=== PATIENT | male | born 1930 | race Caucasian/White ===

== ENCOUNTER → 2018-03-26 | Outpatient (CLI) | payer MEDICARE, OTHER ==
[~2018-03-26] MED LIST: ADULT LOW DOSE81 MG; AMOXICILLIN875 MG PO; ASPIRIN EC325 M1 PO; AUGMENTIN 875875 MG PO; BACTRIM DS TAB1 EACH PO; CIPRO500 MG PO; CRESTOR; CRESTOR10 MG PO; FISH OIL 1,001000 M2 PO; FISHOIL; LEVSIN-SL0.125 MG PO; LOPRESSOR; LOPRESSOR50 PO; LORTAB 5 MG/5001 TA1 PO; MULTIVITAMINS PO; NORCO 5-325 TA1 EACH PO; PRILOSEC2.5 MG; PRILOSEC20 MG PO; VITAMIN D1000 UNI1 PO; [UNRECOGNIZED DRUG - OTHER] PO
[2018-03-26 09:54] LABS: CALCIUM 8.3 mg/dL (8.5-10.1); CREATININE 1.1 mg/dL (0.6-1.3); POTASSIUM 3.6 mmol/L (3.5-5.1)
== END ==
LOC: M.LAB 08:51
PROVIDERS: Nurse Practitioner
DX: R60.0 Localized edema (principal); I25.10 Atherosclerotic heart disease of native coronary artery without angina pectoris; I10 Essential (primary) hypertension

== ENCOUNTER → 2018-10-15 | Outpatient (CLI) | payer MEDICARE, OTHER ==
[2018-10-15 10:36] LABS: CALCIUM 8.9 mg/dL (8.5-10.1)
== END ==
LOC: M.LAB 09:43
PROVIDERS: Nurse Practitioner
DX: R60.0 Localized edema (principal)

== ENCOUNTER → 2020-06-02 | Outpatient (CLI) | payer MEDICARE, OTHER | LOC: M.RAD 14:41 | PROVIDERS: ATTEND Internal Medicine Critical Care Medicine | DX: R06.02 Shortness of breath (principal); R60.0 Localized edema; Z77.090 Contact with and (suspected) exposure to asbestos ==

== ENCOUNTER → 2020-06-15 | Outpatient (CLI) | payer MEDICARE, OTHER ==
--- NOTE | 2020-06-15 10:37 | 2DMMODE ---
[place] [address] 2 D/M-MODE ECHOCARDIOGRAM Name: SHAHEED PAGE BETTY Room: [facility]#: [id number] Admission: 06/15/20 Attend Phys: Jono Leon MD Discharge: Date of : 34 Date of Service: 06/15/20 [facility] Report #: [id number] THIS REPORT FOR: cc: Leonardo Garrett MD, Todd MD Blick,Christopher Ortiz MD [facility] ~ APPROVED REPORT Study performed: 06/15/2020 08:59:14 EXAM: Comprehensive 2D, Doppler, and color-flow Echocardiogram Patient Location: Out-Patient BSA: 1.93 HR: 68 bpm BP: 148/72 mmHg Other Information Study Quality: Good Indications Aortic Valve Disease 2D Dimensions IVSd: 15.23 (7-11mm) LVOT Diam: 20.23 (18-24mm) LVDd: 48.56 mm PWd: 11.74 (7-11mm) Ascending Ao: 37.18 (22-36mm) LVDs: 29.75 (25-40mm) Aortic Root: 26.89 mm Volumes Left Atrial Volume (Systole) LA ESV Index: 23.80 mL/m2 Aortic Valve AoV Peak Esteban.: 1.37 m/s AO Peak Gr.: 7.50 mmHg LVOT Max P.15 mmHg AO Mean Gr.: 4.13 mmHg LVOT Mean P.09 mmHg LVOT Max V: 0.73 m/s AO V2 VTI: 26.39 cm LVOT Mean V: 0.48 m/s MANAS (VTI): 1.78 cm2 LVOT V1 VTI: 14.65 cm AI [place]: 2.81 m/s2 AI PHT: 466.86 [place] [address] 2 D/M-MODE ECHOCARDIOGRAM Name: SHAHEED PAGE BETTY Room: [facility]#: [id number] Admission: 06/15/20 Attend Phys: Jono Leon MD Discharge: Date of : 34 Date of Service: 06/15/20 [facility] Report #: [id number] Mitral Valve E/A Ratio: 0.45 MV Decel. Time: 350.16 ms MV E Max Esteban.: 0.33 m/s MV PHT: 101.55 ms MVA (PHT): 2.17 cm2 TDI E/Lateral E': 6.60 E/Medial E': 4.71 Medial E' Esteban.: 0.07 m/s Lateral E' Esteban.: 0.05 m/s Pulmonary Valve PV Peak Esteban.: 0.76 m/s PV Peak Gr.: 2.28 mmHg Tricuspid Valve RAP Estimate: 5.00 mmHg TR Peak Gr.: 30.25 mmHg RVSP: 35.25 mmHg PA Pressure: 35.25 mmHg Left Ventricle The left ventricle is normal size. There is normal LV segmental wall motion. Mild concentric left ventricular hypertrophy. Left ventricular systolic function is normal. The left ventricular ejection fraction is within the normal range. LVEF is 55-60%. Grade I - abnormal relaxation pattern. Right Ventricle The right ventricle is normal size. The right ventricular systolic function is normal. Atria The left atrium size is normal. The atrial septum is aneurysmal. The right atrium size is normal. Aortic Valve The Aortic valve is mildly sclerotic. Mild aortic regurgitation. There is no aortic valvular stenosis. Mitral Valve The mitral valve is normal in structure. Mild mitral regurgitation. No evidence of mitral valve stenosis. Tricuspid Valve The tricuspid valve is normal in structure. Trace [place] [address] 2 D/M-MODE ECHOCARDIOGRAM Name: SHAHEED PAGE BETTY Room: [facility]#: [id number] Admission: 06/15/20 Attend Phys: Jono Leon MD Discharge: Date of : 34 Date of Service: 06/15/20 [facility] Report #: [id number] Pulmonic Valve The pulmonary valve is normal in structure. Mild pulmonic regurgitation. Great Vessels The aortic root is normal in size. IVC is normal in size and collapses >50% with inspiration. Pericardium There is no pericardial effusion. <Conclusion> Mild concentric left ventricular hypertrophy. LVEF is 55-60%. The Aortic valve is mildly sclerotic. Mild aortic regurgitation. Mild mitral regurgitation. <ELECTRONICALLY SIGNED> By: Christopher Fraga MD, FACC 06/15/20 1037 1037 1037 Christopher Fraga MD, FACC /INF
== END ==
LOC: M.CRD 09:00
PROVIDERS: ATTEND Internal Medicine Critical Care Medicine
DX: I08.8 Other rheumatic multiple valve diseases (principal); M71.22 Synovial cyst of popliteal space [Baker], left knee; M71.21 Synovial cyst of popliteal space [Baker], right knee

== ENCOUNTER → 2020-06-17 | Outpatient (CLI) | payer MEDICARE, OTHER ==
--- NOTE | 2020-06-26 20:18 | SLEEP ---
[address] [address] SLEEP STUDY REPORT Name: SHAHEED PAGE BETTY [id number] Admission: 06/17/20 Attend Phys: Omi Mooney MD Discharge: Date of : 34 Report #: [id number] THIS REPORT FOR: //name// CC: Omi Garrett This study has been reviewed in its entirety by a board certified sleep specialist INDICATION FOR SLEEP STUDY: Hypersomnia.. INTERPRETATION Total duration of the study is 480 minutes out of which he was asleep for 303 minutes with an overall sleep efficiency decreased to 63.2%. Sleep onset occurred 7 minutes after lying down in bed and REM onset was 108 minutes after sleep onset. N1 sleep duration was 11%, N2 duration was 51%, N3 duration was 15% and REM duration was 23%. This is a split night sleep study, the patient initially was observed without positive airway pressure therapy for 147 minutes out of which he was asleep for 68 minutes. This included 12 minutes of REM sleep. During this time duration, the patient had multiple sleep related respiratory events. These included 3 central apneas, one mixed apnea in addition to 55 hypopneas and 1 respiratory effort related arousal. The patient's overall apnea-hypopnea index was markedly elevated to 52.1. The respiratory disturbance index was 52.9. Body position data indicates the patient was observed asleep in the supine position during the diagnostic portion for only 7.5 minutes and therefore variation with position and apnea-hypopnea index could not be fully evaluated. The patient's mean heart rate at this point was 62. There were occasional premature ventricular contractions recorded. Periodic limb movement index was markedly elevated at 148. Most limb movements, however, were not associated with arousals. Periodic limb movement index with arousals was 11.5. There was a mild sleep fragmentation observed as well as. Other index was elevated to 19.4. Also, there were multiple desaturations. The patient overall spent 13 minutes below an O2 saturation of 88%. The patient was subsequently placed on CPAP therapy and was observed on CPAP therapy for 333 minutes. During this time duration, the patient was asleep for 235 minutes, which in turn included 59 minutes of REM sleep. The patient's mean heart rate was now 53. Periodic limb movement index was 95. Periodic limb movement index with arousals is now 11. Arousal index remained elevated to 23.2. Review of the CPAP titration indicates the patient was titrated beginning with a CPAP pressure of 7 cm of water, gradually increasing it to 10 cm of water. With the administration of a CPAP of 10 cm of water, marked improvement in place the patient's sleep disordered respirations was observed with an apnea-hypopnea index improving to 1.0 and respiratory disturbance index improving [place] 7[place] [address] SLEEP STUDY REPORT Name: SHAHEED PAGE BETTY [id number] Admission: 06/17/20 Attend Phys: Omi Mooney MD Discharge: Date of : 34 Report #: [id number] patient's O2 saturation was also maintained at or above 91% with this therapy in place. REM sleep is observed on the final CPAP pressure. However, REM supine sleep was not observed. IMPRESSION: 1. Severe obstructive sleep apnea with an apnea-hypopnea index of 52.1. There likely is a smaller component of central sleep apnea as well. The patient has significant nocturnal hypoxemia during the diagnostic portion of the sleep study and spent 13 minutes below an O2 saturation of 88%. The patient was observed mostly lying on his sides during the diagnostic portion of the sleep study. With the administration of a CPAP of 10 cm of water, there is marked improvement in the patient's sleep apnea noted. O2 saturation is also adequately maintained. REM sleep is observed on the final CPAP pressure. However, evaluation in the supine position is limited. Periodic limb movement disorder is observed as mentioned above most limb movements, however, are not associated with arousals. RECOMMENDATIONS: 1. Recommend a CPAP of 10 cm of water with heated humidity and mask per patient preference. During this sleep study an Fand P Simplus mask, size large with a C-Flex of 3 was used. 2. The patient already is sleeping mostly on his sides. Suggest continuing to avoid sleeping supine. Recommend avoiding driving or other activities requiring vigilance if drowsy. This entire sleep study was reviewed by board certified sleep physician. <ELECTRONICALLY SIGNED> By: Jono Leon MD 06/26/202017 1638 1701Atanvir Leon MD /nt
== END ==
LOC: M.SLEEPLAB 19:48
PROVIDERS: ATTEND Psychiatry & Neurology Neuromuscular Medicine
DX: G47.33 Obstructive sleep apnea (adult) (pediatric) (principal); G47.10 Hypersomnia, unspecified

== ENCOUNTER 2020-07-15 19:19 | Inpatient (IN) | payer MEDICARE, OTHER ==
[~2020-07-15] VITALS: Ht 177.8 cm; Wt 81.6 kg
[~2020-07-15 19:19] MED LIST changes: +PRILOSEC OTC20 MG PO; -PRILOSEC20 MG PO; -VITAMIN D1000 UNI1 PO; +VITAMIN D325 MC1 PO
[2020-07-15 19:33] VITALS: BP 157/76
[2020-07-15 19:53] LABS: ABSOLUTE BASOPHILS 0.1 thou/uL (0.0-0.2); ABSOLUTE EOSINOPHILS 0.3 thou/uL (0.0-0.7); ABSOLUTE NEUTROPHILS 7.7 thou/uL (1.6-8.1); BASOPHILS 0.7 %; EOSINOPHILS 2.8 %; HEMATOCRIT 40.6 % (42.0-52.0); HEMOGLOBIN 13.5 gm/dL (14.0-18.0); LYMPHOCYTES 9.8 %; MCH 26.6 pg (26.0-34.0); MCHC 33.2 g/dL (28.0-37.0); MCV 80.1 fL (80.0-100.0); MPV 8.5 fl. (7.2-11.1); NUCLEATED RBCS 0 /100WBC; PLATELET COUNT* 235 thou/uL (150-400); POLYS 76.7 %; RBC 5.07 mil/uL (4.50-6.00); RDW-CV 15.9 % (10.5-14.5)
[2020-07-15 20:01] LABS: CALCIUM 7.4 mg/dL (8.5-10.1); CREATININE 1.4 mg/dL (0.6-1.3); POTASSIUM 3.6 mmol/L (3.5-5.1)
[2020-07-15 20:03] LABS: INR 1.1
[2020-07-15 20:06] LABS: ALBUMIN 3.4 g/dL (3.4-5.0); TOTAL BILIRUBIN 0.3 mg/dL (<0.1-1.0); TOTAL PROTEIN 6.6 g/dL (6.4-8.2)
[2020-07-15 20:46] LABS: URINE BILIRUBIN NEGATIVE (Negative); URINE BLOOD NEGATIVE (Negative); URINE CLARITY CLEAR; URINE COLOR YELLOW; URINE GLUCOSE-RANDOM NEGATIVE (Negative); URINE KETONES NEGATIVE (Negative); URINE LEUKOCYTES-REFLEX NEGATIVE (Negative); URINE NITRITE-REFLEX NEGATIVE (Negative); URINE PROTEIN NEGATIVE (Negative); URINE SPECIFIC GRAVITY <= 1.005 (1.005-1.030); URINE UROBILINOGEN 0.2 E.U./dl (0.2-1.0)
[2020-07-15 21:22] VITALS: BP 133/65
[2020-07-15 22:00] VITALS: BP 156/68
[2020-07-16] VITALS (7 sets, daily range): BP systolic 143–167; BP diastolic 68–80
[2020-07-16] MEDS ORDERED: TOPROL XL50 MG PO (06:27)
[2020-07-16] MEDS ORDERED: LISINOPRIL2.5 MG PO (06:29)
[2020-07-16] MEDS ORDERED: KLOR-CON 10 ER10 MEQ PO (06:30)
[2020-07-16] MEDS ORDERED: FUROSEMIDE 40 M40 MG PO (06:31)
[2020-07-16] MEDS ORDERED: SINGULAIR 10 MG10 MG PO (06:34)
[2020-07-16] MEDS ORDERED: RED YEAST RICE600 MG PO (06:35)
[2020-07-16] MEDS ORDERED: PRESERVISION T1 EACH PO (06:35)
[2020-07-16] MEDS ORDERED: 24HOUR ALLERGY10 MG PO (06:37)
[2020-07-16] MEDS ORDERED: CO Q-10100 MG PO (06:38)
[2020-07-16] MEDS ORDERED: PROAIR HFA8.5 GM INH (06:39)
[2020-07-16] MEDS ORDERED: ADVAIR 250-501 EACH INH (06:39)
--- NOTE | 2020-07-16 13:12 | EKG ---
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1930 Requested By: Lew Webb Order Number: [id number] MD: Bhanu Celestin Measurements Intervals [place] Rate: 71 P: -29 [place]: 159 QRS: -28 QRSD: 96 T: 37 QT: 402 QTc: 437 Interpretive Statements Sinus rhythm Multiple premature complexes, vent & supraven Borderline left axis deviation Anteroseptal infarct, old Minimal ST depression, lateral leads Baseline wander in lead(s) II,III,aVF Compared to ECG 05/16/2014 08:32:04 Myocardial infarct finding now present ST (T wave) deviation now present Sinus bradycardia no longer present Electronically Signed On 07-16-2020 13:12:16 CDT by Bhanu Celestin [email or web address] <ELECTRONICALLY SIGNED> By: Holly Celestin MD, [facility] 07/16/20 1312 28 28 Holly Celestin MD, [facility] /EPI
[2020-07-17] VITALS (8 sets, daily range): BP systolic 124–168; BP diastolic 62–89
[2020-07-17 06:09] LABS: ALBUMIN 2.9 g/dL (3.4-5.0); CALCIUM 7.7 mg/dL (8.5-10.1)
[2020-07-17 11:58] LABS: CALCIUM 7.5 mg/dL (8.5-10.1); CREATININE 1.1 mg/dL (0.6-1.3); MAGNESIUM 1.9 mg/dL (1.8-2.4); POTASSIUM 3.9 mmol/L (3.5-5.1)
[2020-07-18] VITALS: BP 119/57
[2020-07-18 04:00] VITALS: BP 120/56
[2020-07-18 08:00] VITALS: BP 160/74
[2020-07-18 15:28] VITALS: BP 164/72
[2020-07-18 16:00] VITALS: BP 125/74
--- NOTE | 2020-07-18 17:04 | CARDNUC ---
[place] [address] CARDIAC NUCLEAR IMAGING REPORT Name: SHAHEED PAGE BETTY Room: [address] IN [facility]#: [id number] Admission: 07/15/20 Attend Phys: Chandana Dwyer, Discharge: Date of : 34 Date of Service: 07/18/20 1704 Report #: [id number] THIS REPORT FOR: cc: Leonardo Garrett MD, Todd MD Liston,Guillaume Hernandez MD [facility] ~ APPROVED REPORT Imaging Protocol: Rest Tc-99m/Stress Tc-99m 1 day Study performed: 07/16/2020 13:10:00 Indication: V-TACH, ABN HEART MONITOR, FAINT FEELING. Patient Location: In-Patient Room #: 210 Stress Tech: Madison Blake Stress Nurse: Flor Pierce RN NM Tech:MIRNA Plascencia Ht: 5 ft 10 in Wt: 185 lbs BSA: 2.02 m2 BMI: 26.54 Medical History Medical History: ROSENBERG, V-TACH, ABN HEART MONITOR, FAINT FEELING, HTN, HLD, KNEE INJURY. Medications: AMIODARONE, ASA 325 MG, FISH OIL, LASIX, METOPROLOL, K-DUR, LISINOPRIL, ATORVASTATIN. Allergies: No known drug allergies Cardiac Risk Factors: Age, HTN, Hyperlipidemia, SOB, V-TACH, ABN HEART MONITOR. Previous Cardiac Procedures: NONE Pretest Chest Pain Characteristics: No chest pain Exercise History: Indeterminate Physical Disabilities: UNSTABLE GAIT, RIGHT KNEE INJURY. Meds Held (24 hrs): AMIODARONE, METOPROLOL. Resting Data Rest SPECT myocardial perfusion imaging was performed in supine position 30 minutes following the intravenous injection of 10.4 mCi of Tc-99m Sestamibi. Time of rest injection: 0850 Date: 07/18/2020 The images were gated to evaluate regional wall motion and calculate left ventricular ejection fraction. Administration Route: IV Administration Site: [place] [address] CARDIAC NUCLEAR IMAGING REPORT Name: SHAHEED PAGE BETTY Room: [address]#: [id number] Admission: 07/15/20 Attend Phys: Chandana Dwyer, Discharge: Date of : 32 Date of Service: 07/18/20 1704 Report #: [id number] Pharmacologic Stress Pharmacologic stress test was performed by injecting Regadenoson 0.4 mg IV push over 10-15 seconds immediately followed by the intravenous injection of 30.1 mCi of Tc-99m Sestamibi. Time of stress injection: 1100 Date: 07/18/2020 Administration Route: IV Administration Site: Right Arm Gated Stress SPECT was performed 40 minutes after stress injection. The images were gated to evaluate regional wall motion and calculate left ventricular ejection fraction. Stress only was performed in the Supine position. Stress Test Details Stress Test: Pharmacologic stress testing performed using 0.4 mg of regadenoson per 5 mL given IV over 10 seconds. Reason for pharmacologic stress test: UNSTABLE GAIT, RIGHT KNEE INJURY.. HR Max Heart Rate (APMHR): 132 bpm Resting HR: 65 bpm Target HR (85% APMHR): 112 bpm Max HR Achieved: 93 bpm % of APMHR: 70 Recovery HR: 81 bpm BP Resting BP: 148/85 mmHg Max BP: 186/85 mmHg Recovery BP: 186/83 mmHg ECG Resting ECG: Sinus Rhythm Stress ECG: Sinus Rhythm ST Change: None Arrhythmia: None Recovery ECG: Sinus Rhythm Recovery ST Change: None Recovery Arrhythmia: None Clinical Reason for Termination: Completed protocol Stress Symptoms: LIGHTHEADED, FUZZY FEELING. Exercise duration: 00 min 00 sec Exercise capacity: 1.00 METs The patient tolerated Lexiscan stress without [place] [address] CARDIAC NUCLEAR IMAGING REPORT Name: SHAHEED PAGE BETTY Room: [address]#: [id number] Admission: 07/15/20 Attend Phys: Chandana Dwyer, Discharge: Date of : 32 Date of Service: 07/18/20 1704 Report #: [id number] Nurse Comments AN 89 YEAR OLD MALE INPATIENT PRESENTED FOR A SITTING LEXISCAN R/T ABN HEART MONITOR, V-TACH, FAINT FEELING. TEST WELL TOLERATED. RECOVERY UNREMARKABLE. PATIENT WAS ESCORTED BY STAFF VIA WHEELCHAIR TO NUCLEAR MEDICINE FOR IMAGING. PATIENT WAS STABLE AND STATED HE FELT GOOD AT THAT TIME. Stress ECG Conclusion The baseline twelve-lead EKG shows sinus rhythm without significant ST segment abnormality. EKGs obtained during and post Lexiscan infusion show sinus rhythm with no significant ST segment changes when compared to baseline. There were no stress-induced arrhythmias. Study Quality Study: Good Artifact: No artifact Study Data At rest, the left ventricular ejection fraction was 72%.. Post stress, the left ventricular ejection was 70%.. TID = 1.00. Perfusion Perfusion images show a moderate sized moderate intensity reversible defect of the apex. No other significant fixed or reversible defects are identified. Wall Motion Global LV systolic function is preserved. There is apical hypokinesis. Nuclear Conclusion ECG Findings: negative for ischemia Clinical Findings: negative for ischemia Nuclear Findings: positive for ischemia Exercise Capacity: not assessed Left Ventricular Function: Preserved Risk Study: moderate Perfusion images show evidence of apical ischemia. Global LV systolic function is preserved. There is an apical wall motion abnormality. This is a moderate risk study. <Conclusion> The baseline twelve-lead EKG shows sinus rhythm [place] [address] CARDIAC NUCLEAR IMAGING REPORT Name: SHAHEED PAGE BETTY Room: [address] IN [facility]#: [id number] Admission: 07/15/20 Attend Phys: Chandana Dwyer, Discharge: Date of : 32 Date of Service: 07/18/20 1704 Report #: [id number] segment abnormality. EKGs obtained during and post Lexiscan infusion show sinus rhythm with no significant ST segment changes when compared to baseline. There were no stress-induced arrhythmias. <ELECTRONICALLY SIGNED> By: Guillaume Bauer MD, [facility] 07/18/20 170 03 03 Guillaume Bauer MD, FACC /INF
--- NOTE | 2020-07-18 17:22 | 2DMMODE ---
[place] [address] 2 D/M-MODE ECHOCARDIOGRAM Name: KAYLEESHAHEED BETTY Room: [address] IN [facility]#: [id number] Admission: 07/15/20 Attend Phys: Chandana Dwyer, Discharge: Date of : 32 Date of Service: 07/18/20 1721 Report #: [id number] THIS REPORT FOR: cc: Leonardo Garrett MD, Todd MD Holkins,Dickson Singh MD [facility] ~ APPROVED REPORT Study performed: 07/18/2020 11:05:12 EXAM: Limited 2D Echocardiogram Patient Location: In-Patient Room #: 210 BSA: 2.02 HR: 76 bpm BP: 148/85 mmHg Other Information Study Quality: Good Indications Tachycardia 2D Dimensions IVSd: 14.32 (7-11mm) LVDd: 47.80 mm PWd: 12.22 (7-11mm) LVDs: 30.46 (25-40mm) Aortic Root: 36.11 mm Left Ventricle The left ventricle is normal size. There is normal LV segmental wall motion. Mild concentric left ventricular hypertrophy. Left ventricular systolic function is normal. The left ventricular ejection fraction is within the normal range. LVEF is 60-65%. Right Ventricle The right ventricle is normal size. The right ventricular systolic function is normal. Atria The left atrium size is normal. The right atrium [place] [address] 2 D/M-MODE ECHOCARDIOGRAM Name: KAYLEESHAHEED BETTY Room: [address] IN M.R.#: [id number] Admission: 07/15/20 Attend Phys: Chandana Dwyer, Discharge: Date of : 34 Date of Service: 07/18/201720 Report #: [id number] Aortic Valve Mild aortic valve sclerosis. Mitral Valve The mitral valve is normal in structure. Tricuspid Valve The tricuspid valve is normal in structure. Pulmonic Valve The pulmonary valve is normal in structure. Great Vessels The aortic root is normal in size. IVC is normal in size and collapses >50% with inspiration. Pericardium There is no pericardial effusion. <Conclusion> The left ventricle is normal size. Mild concentric left ventricular hypertrophy. Left ventricular systolic function is normal. The left ventricular ejection fraction is within the normal range. LVEF is 60-65%. The right ventricle is normal size. The left atrium size is normal. Mild aortic valve sclerosis. The mitral valve is normal in structure. The tricuspid valve is normal in structure. There is no pericardial effusion. There is normal LV segmental wall motion. <ELECTRONICALLY SIGNED> By: Dickson Virk MD, [facility] 07/18/201720 20 20 Dickson Virk MD, FACC /INF
--- NOTE | 2020-07-18 17:40 | EKG ---
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 : 1930 Requested By: Holly Celestin Order Number: [id number] Reading MD: Guillaume Bauer Measurements Intervals [place] Rate: 62 P: 13 [place]: 165 QRS: -24 QRSD: 97 T: 30 QT: 436 QTc: 443 Interpretive Statements Sinus rhythm Borderline left axis deviation Anteroseptal infarct, age indeterminate, possible Compared to ECG 07/15/2020 19:29:12 ST (T wave) deviation no longer present Myocardial infarct finding still present Electronically Signed On 07-18-2020 17:40:16 CDT by Guillaume Bauer [email or web address] <ELECTRONICALLY SIGNED> By: Guillaume Bauer MD, FACC 07/18/20 1740 1204 1204 Guillaume Bauer MD, FACC /EPI
--- NOTE | 2020-07-18 17:44 | EKG ---
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
[2020-07-19] VITALS (12 sets, daily range): BP systolic 132–182; BP diastolic 65–85
[2020-07-19 04:50] LABS: HEMATOCRIT 40.3 % (42.0-52.0); HEMOGLOBIN 13.3 gm/dL (14.0-18.0); MCH 26.2 pg (26.0-34.0); MCHC 32.9 g/dL (28.0-37.0); MCV 79.5 fL (80.0-100.0); MPV 8.9 fl. (7.2-11.1); RBC 5.07 mil/uL (4.50-6.00); RDW-CV 15.2 % (10.5-14.5); WBC 9.1 thou/uL (4.0-11.0)
[2020-07-19 05:05] LABS: CALCIUM 8.1 mg/dL (8.5-10.1); CREATININE 1.4 mg/dL (0.6-1.3); MAGNESIUM 1.9 mg/dL (1.8-2.4)
--- NOTE | 2020-07-19 16:14 | EKG ---
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
[2020-07-20] VITALS: BP 155/77
[2020-07-20 04:51] LABS: HEMATOCRIT 38.7 % (42.0-52.0); HEMOGLOBIN 12.7 gm/dL (14.0-18.0); MCH 26.1 pg (26.0-34.0); MCV 79.2 fL (80.0-100.0); MPV 8.9 fl. (7.2-11.1); RBC 4.88 mil/uL (4.50-6.00); RDW-CV 15.4 % (10.5-14.5); WBC 11.9 thou/uL (4.0-11.0)
[2020-07-20 05:23] LABS: ALBUMIN 3.1 g/dL (3.4-5.0); CALCIUM 7.5 mg/dL (8.5-10.1); CREATININE 1.4 mg/dL (0.6-1.3); MAGNESIUM 1.9 mg/dL (1.8-2.4); TOTAL BILIRUBIN 0.6 mg/dL (<0.1-1.0); TOTAL PROTEIN 6.1 g/dL (6.4-8.2)
[2020-07-20 07:56] VITALS: BP 144/73
[2020-07-20 08:00] VITALS: BP 144/73
[2020-07-20 11:55] VITALS: BP 143/71
--- NOTE | 2020-07-20 13:21 | EKG ---
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: ANIBAL : 1930 Requested By: Guillaume Bauer Order Number: [id number] Rosa M MD: Dickson Virk Measurements Intervals [place] Rate: 60 P: 44 [place]: 194 QRS: -23 QRSD: 133 T: -2 QT: 495 QTc: 495 Interpretive Statements Sinus rhythm Right bundle branch block Left axis deviation Anterior precordial ST-T abnormalities suggesting ischemia Compared to ECG 07/19/2020 08:22:31 Right bundle-branch block now present Anterior ischemic ST-T changes are noted Electronically Signed On 07-20-2020 13:21:07 CDT by Dickson Virk [email or web address] <ELECTRONICALLY SIGNED> By: Dickson Virk MD, [facility] 07/20/20 1321 1351 135 Dickson Virk MD, [facility] /EPI
--- NOTE | 2020-07-20 13:26 | EKG ---
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 : 1930 Requested By: Holly Celestin Order Number: [id number] Rosa M MD: Dickson Virk Measurements Intervals [place] Rate: 59 P: 35 [place]: 165 QRS: -19 QRSD: 111 T: 6 QT: 490 QTc: 486 Interpretive Statements Sinus rhythm Borderline left axis deviation Probable anteroseptal infarct, age indeterminate Minimal ST depression, lateral leads Compared to ECG 07/19/2020 08:22:31 Myocardial infarct finding now present ST (T wave) deviation now present Electronically Signed On 07-20-2020 13:26:10 CDT by Dickson Virk [email or web address] <ELECTRONICALLY SIGNED> By: Dickson Virk MD, [facility] 07/20/20 1326 0503 0503 Dickson Virk MD, [facility] /EPI
--- NOTE | 2020-07-20 14:03 | CARD ---
[address] [address] CARDIAC CATH REPORT Name: SHAHEED PAGE BETTY Room: [address] IN [facility]#: [id number] Admission: 07/15/20 Attend Phys: Chandana Dwyer MD Discharge: Date of : 32 Report #: [id number] THIS REPORT FOR: //name// cc: Leonardo Garrett MD, Todd MD ~ APPROVED REPORT Study performed: 07/19/2020 08:48:39 Patient Details Patient Status: In-Patient Room #: 210 The patient is a 89 year-old male Event Personnel Guillaume Bauer Court Messenger, Val Duval RN Wire Bound Box Machine Helper, Chandana Johnson ScrubKenney Adam RTR Monitor Dr. Dickson Virk tracer bullet charging machine operator Procedures Performed Left Heart Cath w/or w/o Coronaries [id number] [facility] ANISA Place w/wo Plasty Single LAD [id number] Hemostasis w/ Angioseal Indication Unstable angina , Positive stress test Risk Factors Peripheral Vascular Disease, Hypercholesterolemia, Hypertension Admission/Lab Medications/Medications given during procedure Lidocaine Subcut 20 ml, Midazolam (Versed) IV 1 mg, Fentanyl IV 25 mcg, Hydralazine (Apresoline) IV 10 mg, Nitroglycerin SL 0.4 mg, Angiomax IV 13 ml, Angiomax IV 29.24 ml per hr, Nitroglycerin IC 100 mcg, Nitroglycerin IC 100 mcg, Nipride IC 200 mcg, Effient PO 60 mg Procedure Narrative The patient was brought electively to the Cardiac Catheterization Laboratory and was prepped and draped in a sterile manner. The right femoral was infiltrated with 2% Lidocaine subcutaneous anesthesia. A Oniel Sheath 6Fr X 45cm sheath was inserted into the right femoral artery. Coronary angiography was performed using coronary diagnostic catheters. The right coronary system was accessed and visualized with a 6F JL 5.0 Diagnostic catheter. The [place] [address] CARDIAC CATH REPORT Name: SHAHEED PAGE BETTY Room: [address] IN [facility].#: [id number] Admission: 07/15/20 Attend Phys: Chandana Dwyer MD Discharge: Date of : 32 Report #: [id number] accessed and visualized with a AL1 6fr Diagnostic catheter. The left ventricle was accessed and visualized with a Pigtail angled 6Fr Diagnostic catheter. Left ventricular/Aortic Valve gradient assessed via catheter pullback. Pre-demployment femoral angiogram was performed . Closure device was deployed with a 6 Fr Angioseal. The patient tolerated the procedure well and there were no complications associated with the procedure. There was no hematoma. Intraoperative Conscious Sedation Sedation start time: 932 Case end Time: 1113 Fentanyl 25 mcg Versed 1 mg Fluoro Time: 31.6 minutes Dose: DAP 867782 cGycm2 3285.79 mGy Contrast Type and Amount: Omnipaque 425 ml Diagnostic Cath Left Main 0% narrowing LAD 75% proximal with diffuse 90% proximalmid LAD stenosis with prominent intraluminal thrombus; there was 90% stenosis of a segment of the subbranch of the first diagonal branch Circumflex Large dominant vessel with 40% proximal narrowing and 90% diffuse distal narrowing before a prominent second posterolateral left ventricular branch Right Coronary Nondominant vessel which is totally occluded proximally Left Ventriculography Left Ventriculography was not performed. Hemodynamics The aortic pressure is 185/78 mmHg with a mean of 119 mmHg. The left ventricular pressure is 130/7 mmHg with a mean of mmHg. The left ventricular end diastolic pressure is 27 mmHg. There was no gradient across the aortic valve upon pullback. PCI Technique Lesion Anticoagulation was achieved with Angiomax. Percutaneous coronary intervention was performed on the Proximalmid left anterior descending artery segment. The lesion stenosis prior to intervention was 90% with SHANTEL 0-3 flow. A 6FR XB 3.5 100CM Guide Catheter was used to engage the Left ostium. A IG: BMW 190cm Interventional Guidewire was used to cross the lesion. [place] [address] CARDIAC CATH REPORT Name: SHAHEED PAGE BETTY Room: [address] IN M.R.#: [id number] Admission: 07/15/20 Attend Phys: Chandana Dwyer MD Discharge: Date of : 32 Report #: [id number] A Balloon catheter Mini Trek RX 2.0 X 12 was inserted and inflated up to 8.00atm for 8seconds. Additional Inflation: 10.00atm for 10seconds. Additional Inflation: 12.00atm for 10seconds. A Balloon Catheter EA Trek 2.5 X 12 was inserted and inflated up to 10.00 bj for 9 seconds. Additional Inflation: 12.00 bj for 10 seconds. Additional Inflation: 14.00 bj for 8 seconds. STENT DEPLOYMENT A drug-eluting stent Capo RX Stent 2.5X38mm was inserted and inflated up to 12.00atm for 8seconds. Additional Inflation: 14.00atm for 8seconds. POST STENT DEPLOYMENT BALLOON DILATION A Balloon catheter [place] Euphora 2.75x12 was inserted and inflated up to 10.00atm for 8seconds. Additional Inflation: 14.00atm for 7seconds. Additional Inflation: 16.00atm for 8seconds. Final angiography reveals 10 % stenosis with SHANTEL 3 flow. COMMENTS The PCI was technically complex by virtue of severe peripheral vascular disease with marked iliac tortuosity. There was also prominent intraluminal thrombus with compromise of antegrade flow through the LAD system with SHANTEL flow varying from 0-3 throughout the case PCI Technique Lesion 2 Percutaneous Coronary Intervention was performed on the proximal left anterior descending artery segment. The lesion stenosis prior to intervention was 75% with SHANTEL 3 flow. Stent Deployment A drug-eluting stent [place] RX Stent 2.66S56lr was inserted and inflated up to 12.00atm for 8seconds. Additional Inflation: 12.00atm for 6seconds. Final angiography reveals 0 % stenosis with SHANTEL 3 flow. Conclusion 1. Severe coronary artery disease characterized by the following: A 75% proximal with 90% diffuse proximalmid LAD stenosis with prominent intraluminal thrombus and variable flow from SHANTEL 0-III [place] [address] CARDIAC CATH REPORT Name: SHAHEED PAGE BETTY Room: [address] M.R.#: [id number] Admission: 07/15/20 Attend Phys: Chandana Dwyer MD Discharge: Date of : 32 Report #: [id number] B 90% stenosis of a subbranch of the first diagonal branch of the LAD C large dominant circumflex with 40% proximal narrowing and 90% diffuse distal narrowing before a prominent second posterolateral left ventricular branch D 100% occlusion of the nondominant right coronary artery proximally 2. Severe elevation of left ventricular end-diastolic pressure at rest 3. Successful PCI with deployment of drug-eluting stents at the sites of 75% proximal and 90% proximalmid LAD stenosis with 0 and 10% residual narrowings and SHANTEL-3 flow to the distal vessel 4. The procedure was technically complex by virtue of severe peripheral vascular disease with marked iliac tortuosity as well as prominent intraluminal LAD thrombus with variable, SHANTEL 0-III flow in the LAD system throughout the case Recommendations Cardiac Risk Reduction Program Aggressive Medical Therapy Medications Administered Aspirin (any) Ticagrelor Diagnostic Cath Approved by: Guillaume Bauer MD Date/Time: 07/20/2020 13:57:15 <ELECTRONICALLY SIGNED> By: Dickson Virk MD, FACC 07/20/20 1403 140 140Dickson Virk MD, FAC /INF
[2020-07-20 15:50] VITALS: BP 163/71
[2020-07-20 19:45] VITALS: BP 125/59
[2020-07-21] VITALS (12 sets, daily range): BP systolic 119–156; BP diastolic 56–103
[2020-07-21 05:10] LABS: CALCIUM 8.2 mg/dL (8.5-10.1); CREATININE 1.3 mg/dL (0.6-1.3); POTASSIUM 3.8 mmol/L (3.5-5.1)
--- NOTE | 2020-07-21 11:58 | EKG ---
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: : 1930 Requested By: Holly Celestin Order Number: [id number] Reading MD: Dickson Virk Measurements Intervals [place] Rate: 59 P: 28 FL: 175 QRS: -21 QRSD: 95 T: 36 QT: 493 QTc: 489 Interpretive Statements Sinus rhythm Borderline left axis deviation Borderline prolonged QT interval Compared to ECG 07/20/2020 05:03:42 Myocardial infarct finding no longer present ST (T wave) deviation no longer present Electronically Signed On 07-21-2020 11:57:58 CDT by Dickson Virk [email or web address] <ELECTRONICALLY SIGNED> By: Dickson Virk MD, [facility] 07/21/20 1157 9 9 Dickson Virk MD, [facility] /EPI
--- NOTE | 2020-07-21 15:44 | EKG ---
[place] [address] ELECTROCARDIOGRAM REPORT Name: SHAHEED PAGE Room: [address] ADM IN M.R.#: [id number] Admission: 07/15/20 Attend Phys: Chandana Dwyer, Discharge: Date of : 32 Date of Service: 07/21/20 1428 Report #: [id number] THIS REPORT FOR: //name// [facility] Test Date: 2020-07-21 Test Time: 14:28:49 Pat Name: SHAHEED PAGE Department: Room: [address] Gender: M Business Rules Developer: : 1930 Requested By: Guillaume Bauer Order Number: [id number] Reading MD: Guillaume Bauer Measurements Intervals [place] Rate: 58 P: 7 NC: 174 QRS: -16 QRSD: 98 T: 69 QT: 491 QTc: 483 Interpretive Statements Sinus rhythm Left ventricular hypertrophy Borderline prolonged QT interval Compared to ECG 07/21/2020 08:20:51 Left ventricular hypertrophy now present Electronically Signed On 07-21-2020 15:43:53 CDT by Guillaume Bauer [email or web address] <ELECTRONICALLY SIGNED> By: Guillaume Bauer MD, FACC 07/21/20 1543 1428 1428 Guillaume Bauer MD, [facility] /EPI
[2020-07-22] VITALS (7 sets, daily range): BP systolic 139–176; BP diastolic 70–87
[2020-07-22 04:56] LABS: HEMATOCRIT 37.9 % (42.0-52.0); HEMOGLOBIN 12.6 gm/dL (14.0-18.0); MCH 26.6 pg (26.0-34.0); MCHC 33.3 g/dL (28.0-37.0); MCV 79.9 fL (80.0-100.0); MPV 9.1 fl. (7.2-11.1); RBC 4.75 mil/uL (4.50-6.00); RDW-CV 15.6 % (10.5-14.5); WBC 9.7 thou/uL (4.0-11.0)
[2020-07-22 05:09] LABS: CALCIUM 7.8 mg/dL (8.5-10.1); CREATININE 1.3 mg/dL (0.6-1.3); MAGNESIUM 1.8 mg/dL (1.8-2.4); POTASSIUM 3.8 mmol/L (3.5-5.1)
--- NOTE | 2020-07-22 09:48 | CARD ---
[address] [address] CARDIAC CATH REPORT Name: SHAHEED PAGE BETTY Room: [address] IN [facility]#: [id number] Admission: 07/15/20 Attend Phys: Chandana Dwyer MD Discharge: Date of : 32 Report #: [id number] THIS REPORT FOR: //name// cc: Leonardo Garrett MD, Todd MD ~ APPROVED REPORT Study performed: 07/21/2020 12:07:08 Patient Details Patient Status: Out-Patient Room #: The patient is a 89 year-old male Event Personnel Guillaume Bauer Bobbin Cleaning Machine Operator; Dickson Virk Mine Deputy; Dana Lucas RN High Pressure Kettle Operator; Neri Piña BUSINESS EXECUTIVE Scrub; Alana Cardenas RTR Monitor Procedures Performed Left femoral artery access, ANISA Place w/wo Plasty Single CIRC, Hemostasis w/ Angioseal Indication Unstable angina , Positive stress test Risk Factors Hypercholesterolemia, Hypertension Previous Procedures/Diagnoses Previous PCI Admission/Lab Medications/Medications given during procedure Angiomax IV bolus 13 ml, Angiomax IV drip 29.4 ml per hour, Angiomax IV bolus 4 ml Procedure Narrative The patient was brought electively to the Cardiac Catheterization Laboratory and was prepped and draped in a sterile manner. The left femoral groin area was infiltrated with 2% Lidocaine subcutaneous anesthesia. A 6F [place] sheath was inserted into the left femoral artery. Coronary angiography was performed using coronary diagnostic catheters. The left coronary system was accessed and visualized with a Guide catheter. Pre-demployment femoral angiogram was performed . Closure device was deployed with a 6 Fr Angioseal STS. The patient tolerated the procedure well [place] [address] CARDIAC CATH REPORT Name: SHAHEED PAGE Room: [address]#: [id number] Admission: 07/15/20 Attend Phys: Chandana Dwyer MD Discharge: Date of : 32 Report #: [id number] associated with the procedure. There was no hematoma. Intraoperative Conscious Sedation Sedation start time: 12:18 Case end Time: 12:48 Fentanyl 25.0 mcg Versed 1.0 mg Fluoro Time: 9.1 minutes Dose: DAP 40531 cGycm2 1389 mGy Contrast Type and Amount: Visipaque 170 ml Diagnostic Cath Left Main 0% narrowing LAD Widely patent proximalmid LAD stents with 0% narrowing Circumflex Large dominant vessel with 40% proximal and mid vessel narrowing with 90% diffuse distal circumflex stenosis Right Coronary Small nondominant vessel which was recently defined to be totally occluded proximally Left Ventriculography Left Ventriculography was not performed. Hemodynamics The aortic pressure is 173/68 mmHg with a mean of 107 mmHg. PCI Technique Lesion Anticoagulation was achieved with Angiomax. Patient was preloaded with Angiomax IV bolus13 ml. Percutaneous coronary intervention was performed on the distal circumflex artery segment. The lesion stenosis prior to intervention was 90% with SHANTEL 3 flow. A 6F XBLAD3.5 Guide Catheter was used to engage the lm ostium. A BMW 190 cm Interventional Guidewire was used to cross the lesion. BALLOON DILATION A Balloon catheter Mini Trek RX 2.0 x 12 was inserted and inflated up to 10atm for 12seconds. Additional Inflation: 10atm for 11seconds. Additional Inflation: 12atm for 12seconds. STENT DEPLOYMENT A drug-eluting stent [place] RX 2.5 x 34 mm was inserted and inflated up to 12atm for 13seconds. Additional Inflation: 15atm for 12seconds. Final angiography reveals 10 % stenosis with SHANTEL 3 [place] [address] CARDIAC CATH REPORT Name: SHAHEED PAGE BETTY Room: [address]#: [id number] Admission: 07/15/20 Attend Phys: Chandana Dwyer MD Discharge: Date of : 32 Report #: [id number] Conclusion 1. Significant coronary artery disease characterized by the following: A widely patent recently deployed proximal and mid LAD stents B large dominant circumflex with 40% proximal and mid vessel narrowing with 90% diffuse distal circumflex stenosis C recently defined total occlusion of the small nondominant right coronary proximally 2. Moderate systemic systolic hypertension 3. Successful PCI with deployment of a drug-eluting stent at site of 90% distal circumflex stenosis with 10% residual narrowing and SHANTEL-3 flow to the distal vessel Recommendations Cardiac Risk Reduction Program Aggressive Medical Therapy Diagnostic Cath Approved by: Guillaume Bauer MD Date/Time: 07/22/2020 09:44:58 <ELECTRONICALLY SIGNED> By: Dickson Virk MD, [facility] 07/22/2048 7 0948Dickson Virk MD, [facility] /INF
--- NOTE | 2020-07-22 10:40 | EKG ---
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: : 1930 Requested By: Holly Celestin Order Number: [id number] M MD: Dickson Virk Measurements Intervals [place] Rate: 60 P: -7 [place]: 167 QRS: -28 QRSD: 96 T: 24 QT: 496 QTc: 496 Interpretive Statements Sinus rhythm Probable left ventricular hypertrophy Anterior ST elevation, probably due to LVH Borderline prolonged QT interval Compared to ECG 07/21/2020 14:28:49 No significant interval change Electronically Signed On 07-22-2020 10:40:05 CDT by Dickson Virk [email or web address] <ELECTRONICALLY SIGNED> By: Dickson Virk MD, [facility] 07/22/20 1040 1 1 Dickson Virk MD, [facility] /EPI
--- NOTE | 2020-07-22 17:36 | CARD ---
[address] [address] CARDIAC CATH REPORT Name: SHAHEED PAGE BETTY Room: [address] IN [facility]#: [id number] Admission: 07/15/20 Attend Phys: Chandana Dwyer MD Discharge: Date of : 32 Report #: [id number] THIS REPORT FOR: //name// cc: Leonardo Garrett MD, Todd MD ~ APPROVED REPORT Study performed: 07/22/2020 15:38:08 Patient Status: In-Patient Room #: Event Personnel: Guillaume Bauer Steel Unloader, Val Duval RN RN, Oskar Moulton RTR Scrub, Jessica Palmer RTR Monitor Exam: Insertion of a Single Lead ICD Indications: Sustained ventricular tachycardia with syncope The patient is a 89 year-old male with a history of Syncope near syncope and sustained ventricular tachycardia. Patient Info Last EF%: 60 to 65% Date: 07/18/2020 NYHA Heart Class: II Conscious Sedation Start time: 16:10 End Time: 16:31 Fentanyl 25 mcg Versed 1 mg Implanted Devices: Rivacor 7 VR-T generator [id number] Plexa ProMRI S 65 V Lead [id number] Procedure The patient underwent informed consent. We discussed the details of the procedure including the risks, which include, but not limited to bleeding, infection, vascular damage, cardiac perforation, and pneumothorax. He understood these risks and was willing to proceed. As such, he was brought to the EP/Cardiac Catheterization laboratory in a fasting and sedated state and prepped and draped in a sterile fashion, received IV antibiotics prior to initiation of the procedure and a venogram was performed showing patency of the left axillary vein. The patient underwent conscious sedation, with no related complications. The patient was brought to the EP/Cardiac Catheterization laboratory and the left chest and shoulder were prepped and draped in a sterile manner. During this case, Fluoroscopy and Visipaque 20 [place] [address] CARDIAC CATH REPORT Name: SHAHEED PAGE BETTY Room: [address] IN [facility].#: [id number] Admission: 07/15/20 Attend Phys: Chandana Dwyer MD Discharge: Date of : 32 Report #: [id number] imaging. The left subclavian region was infiltrated with 2% Lidocaine with Epinephrine subcutaneous anesthesia. A transverse incision was made in the left upper chest cavity. The subcutaneous pocket was formed via blunt dissection. Percutaneous venous access was achieved and an introducer sheath was inserted into the left Subclavian vein. Utilizing fluoroscopic guidance, the ventricular lead wire was advanced over the wires and positioned in the right atria and right ventricle respectively. Capturing and sensing thresholds were verified. Electrode Parameters R Wave: 17 mV Ventricular Threshold: 0.8 V at 0.40 ms Ventricular Resistance: 656 ohms Single Chamber The atrial and ventricular leads were then secured using 0 silk sutures. The subcutaneous pocket was irrigated with ancef antibiotic solution.The ventricular lead was attached to the appropriate receptacle on the pulse generator and set screws firmly tightened to insure adequate contact and stability. The lead and pulse generator were placed into the subcutaneous pocket. Sharp and sponge counts were confirmed to be correct. At this time the pocket was closed subcutaneously with a 2.0 Vicryl and the skin was closed with a 4.0 Vicryl. The operative site was dressed in sterile fashion with Benzoin spray, Steri strips, and stratabsorb and the patient was transferred to the floor in stable condition. Complications The patient tolerated the procedure well and there were no complications associated with the procedure. Findings Specimens Removed: No Estimated Blood Loss: 5 ml Conclusion 1. History of syncope and sustained ventricular tachycardia. 2. Successful placement of single lead ICD for secondary [place] [address] CARDIAC CATH REPORT Name: SHAHEED PAGE Room: [address]#: [id number] Admission: 07/15/20 Attend Phys: Chandana Dwyer MD Discharge: Date of : 32 Report #: [id number] 1. Follow-up site check in 1 week. 2. Follow-up device interrogation in 1 to 2 months. <ELECTRONICALLY SIGNED> By: Guillaume Bauer MD, FACC 07/22/20 1735 1735 173Michaeelliot Bauer MD, FAC /INF
[2020-07-23] VITALS: BP 127/64
[2020-07-23 04:00] VITALS: BP 173/91
[2020-07-23 08:00] VITALS: BP 163/94
[2020-07-23] MEDS ORDERED: EFFIENT10 MG PO (09:14)
[2020-07-23] MEDS ORDERED: PACERONE 200 M200 M1 PO (09:14)
[2020-07-23 11:47] VITALS: BP 157/76
[2020-07-23] MEDS ORDERED: LISINOPRIL10 MG PO (11:50)
[2020-07-23 20:10] VITALS: BP 157/78
[2020-07-24] VITALS: BP 157/82
[2020-07-24 04:00] VITALS: BP 136/85
[2020-07-24 08:00] VITALS: BP 152/74
[2020-07-24 12:47] VITALS: BP 145/76
[2020-07-24 16:20] VITALS: BP 144/75
[2020-07-24 20:00] VITALS: BP 148/88
[2020-07-25 07:00] VITALS: BP 143/78
[2020-07-25 10:39] VITALS: BP 143/78
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
== END 2020-07-25 12:55 | disposition home or self-care (01) | DRG 265 ==
LOC: M.ERS 19:19 → M.3W 20:40 → M.TBA-ER 20:40 → M.2W 20:40 → M.3W 07-24 17:46
PROVIDERS: Emergency Medicine; Internal Medicine; Internal Medicine Cardiovascular Disease; ADMIT Internal Medicine; ATTEND Internal Medicine
DX: I47.2 Ventricular tachycardia (principal); I50.33 Acute on chronic diastolic (congestive) heart failure; I13.0 Hypertensive heart and chronic kidney disease with heart failure and stage 1 through stage 4 chronic kidney disease, or unspecified chronic kidney disease; E44.1 Mild protein-calorie malnutrition; I25.10 Atherosclerotic heart disease of native coronary artery without angina pectoris; N18.3 Chronic kidney disease, stage 3 (moderate); E78.5 Hyperlipidemia, unspecified; J44.9 Chronic obstructive pulmonary disease, unspecified; I67.9 Cerebrovascular disease, unspecified; R00.2 Palpitations; I25.89 Other forms of chronic ischemic heart disease; Z68.25 Body mass index [BMI] 25.0-25.9, adult; Z98.49 Cataract extraction status, unspecified eye; I25.2 Old myocardial infarction; Z86.73 Personal history of transient ischemic attack (TIA), and cerebral infarction without residual deficits; Z79.82 Long term (current) use of aspirin; Z79.899 Other long term (current) drug therapy; Z95.5 Presence of coronary angioplasty implant and graft; Z20.828 Contact with and (suspected) exposure to other viral communicable diseases

== ENCOUNTER → 2020-09-20 | Outpatient (CLI) | payer MEDICARE, OTHER ==
[~2020-09-20] MED LIST changes: +24HOUR ALLERGY10 MG PO; +ADVAIR 250-501 EACH INH; +CO Q-10100 MG PO; +EFFIENT10 MG PO; +FUROSEMIDE 40 M40 MG PO; +KLOR-CON 10 ER10 MEQ PO; +LISINOPRIL10 MG PO; +LISINOPRIL2.5 MG PO; +PACERONE 200 M200 M1 PO; +PRESERVISION T1 EACH PO; +PROAIR HFA8.5 GM INH; +RED YEAST RICE600 MG PO; +SINGULAIR 10 MG10 MG PO; +TOPROL XL50 MG PO
--- NOTE | 2020-10-09 22:09 | PF ---
[address] [address] PULMONARY FUNCTION REPORT Name: SHAHEED PAGE BETTY Room: [facility]#: [id number] Admission: 09/20/20 Attend Phys: Jono Leon MD Discharge: Date of : 34 Report #: [id number] THIS REPORT FOR: //name// cc: Leonardo Garrett MD, Todd MD ~ CC: Jono Garrett DATE OF SERVICE: 09/20/2020 The FEV1/FVC ratio is decreased to 63% with an FVC normal at 104%. The FEV1 is also normal at 69%. The [id number] is normal at 80%. The patient's FEV1 is noted to be 2.30 liters. The patient had reported taking albuterol just before the test; therefore reversibility was not performed. The total lung capacity is normal at 91% with a residual volume normal at 87%. The DLCO as adjusted for hemoglobin is normal at 85%. The flow volume loop is concave upwards. IMPRESSION: 1. There is mild obstruction present as the patient took albuterol just before the test. It is not possible to comment on reversibility. Also, it will be possible that the patient's underlying obstruction is more severe than it is noticed here. 2. Normal lung volumes. 3. Normal DLCO. <ELECTRONICALLY SIGNED> By: Jono Leon MD 10/09/20 2209 [id number] salome Burgess
== END ==
LOC: M.PUL 09:16
PROVIDERS: ATTEND Internal Medicine Critical Care Medicine
DX: J98.8 Other specified respiratory disorders (principal); J45.30 Mild persistent asthma, uncomplicated; Z79.899 Other long term (current) drug therapy

== ENCOUNTER → 2021-05-17 | Outpatient (CLI) | payer MEDICARE, OTHER | LOC: M.CT 13:18 | PROVIDERS: ATTEND Internal Medicine Critical Care Medicine | DX: K44.9 Diaphragmatic hernia without obstruction or gangrene (principal); J90 Pleural effusion, not elsewhere classified; R59.0 Localized enlarged lymph nodes; G47.30 Sleep apnea, unspecified; J98.11 Atelectasis; I25.10 Atherosclerotic heart disease of native coronary artery without angina pectoris; I51.7 Cardiomegaly ==